=== PATIENT | male | born 1945 | race Caucasian/White ===

== ENCOUNTER 2023-12-01 07:50 | Inpatient (IN) | payer OTHER, MEDICAID ==
[~2023-12-01] VITALS: Ht 172.7 cm; Wt 83.5 kg
[2023-12-01 07:50] VITALS: BP_SYST 123; PULSE 109; RESP 18; TEMP 98.2; O2SAT 100
[2023-12-01] MEDS ORDERED: NACL 0.9% 1,000 ML IV ONE (08:00)
[2023-12-01] MEDS ORDERED: IPRATROPIUM/ALBUTEROL SULFATE 3 ML AMPUL.NEB (DUONEB) INH ONE (08:00)
[2023-12-01] MEDS ORDERED: PIPERACILLIN/TAZO 3.375 GM in NS 50 ML IV ONE ×2 (08:00→15:00)
[2023-12-01] MEDS ORDERED: METHYLPREDNISOLONE SOD SUCC 40 MG/ML VIAL IVP ONE (08:00)
[2023-12-01] MEDS ORDERED: ACET325T53 PO (08:34)
[2023-12-01] MEDS ORDERED: CHLO473M5 PO (08:34)
[2023-12-01] MEDS ORDERED: TRAZ-250 GT (08:34)
[2023-12-01] MEDS ORDERED: ASCO500T20 GT (08:34)
[2023-12-01] MEDS ORDERED: [UNRECOGNIZED DRUG - CODE] GT (08:34)
[2023-12-01] MEDS ORDERED: TAMS-11 GT (08:34)
[2023-12-01] MEDS ORDERED: ACET-2634 GT (08:34)
[2023-12-01] MEDS ORDERED: NOR10 GT (08:34)
[2023-12-01] MEDS ORDERED: HYDR-3917 PO (08:34)
[2023-12-01] MEDS ORDERED: METH85CR31 (08:34)
[2023-12-01] MEDS ORDERED: ALBU2.5V7 INH ×2 (08:34)
[2023-12-01] MEDS ORDERED: ACET325T53 GT (08:34)
[2023-12-01] MEDS ORDERED: CAT1PAT TD (08:34)
[2023-12-01] MEDS ORDERED: LOVI40 SQ (08:34)
[2023-12-01] MEDS ORDERED: MOM GT (08:34)
[2023-12-01] MEDS ORDERED: FER300L PO (08:34)
[2023-12-01] MEDS ORDERED: FOLI0.8T42 GT (08:34)
[2023-12-01] MEDS ORDERED: SIME80TA15 GT (08:34)
[2023-12-01 08:47] LABS: BASOPHILS % (AUTO) 0.5 % (0.0-2.0); EOSINOPHILS # (AUTO) 2.6 K/uL (0.0-0.4); HEMATOCRIT 27.5 % (36-54); HEMOGLOBIN 8.8 g/dL (14.0-18.0); LYMPHOCYTES # (AUTO) 1.1 K/uL (1.0-5.5); LYMPHOCYTES % (AUTO) 13.8 % (20.5-51.5); MEAN CORPUSCULAR HEMOGLOBIN 27 pg (27-31); MEAN CORPUSCULAR HGB CONC 32 % (32-36); MEAN CORPUSCULAR VOLUME 83 fL (79.0-98.0); MONOCYTES # (AUTO) 0.4 K/uL (0.0-1.0); MONOCYTES % (AUTO) 5.3 % (1.7-9.3); NEUTROPHILS # (AUTO) 3.7 K/uL (1.8-7.7); NEUTROPHILS % (AUTO) 47.4 % (40.0-70.0); PLATELET COUNT (AUTO) 263 K/uL (130-430); RED CELL DISTRIBUTION WIDTH 17.5 % (9.0-15.0); WHITE BLOOD COUNT (AUTO) 7.8 K/uL (4.8-10.8)
[2023-12-01 08:58] LABS: INR 1.1 (0.80-1.20)
[2023-12-01 09:04] LABS: ALANINE AMINOTRANSFERASE 30 U/L (12-78); ALBUMIN 2.9 g/dL (3.4-4.8); ANION GAP 10 (5-15); ASPARTATE AMINOTRANSFERASE 22 U/L (10-37); BILIRUBIN,DIRECT 0.1 mg/dL (0.0-0.3); CALCIUM 9.4 mg/dL (8.4-11.0); CARBON DIOXIDE 28 mmol/L (23-29); CHLORIDE 99 mmol/L (98-107); CREATININE 1.57 mg/dL (0.55-1.30); GLUCOSE 101 mg/dL (74-106); POTASSIUM 3.8 mmol/L (3.5-5.1); SODIUM SERUM 137 mmol/L (136-145); TOTAL BILIRUBIN 0.2 mg/dL (0.0-1.0); TOTAL PROTEIN, SERUM 7.2 g/dL (6.4-8.3); UREA NITROGEN, BLOOD 52 mg/dL (8-21)
[2023-12-01] MEDS ORDERED: methylPREDNISolone SOD SUCC/PF 62.5 MG/ML VIAL IVP ONE (12:15)
[2023-12-01] MEDS ORDERED: ACETAMINOPHEN 325 MG TABLET PO PRN (14:30)
[2023-12-01] MEDS ORDERED: ONDANSETRON HCL 4 MG/2 ML VIAL IVP PRN (14:30)
[2023-12-01] MEDS ORDERED: MORPHINE 2 MG/ML INJ. SYRINGE IVP PRN (14:30)
[2023-12-01] MEDS ORDERED: HYDROcodone/ACETAMIN 10-325 MG TAB PO PRN (14:30)
[2023-12-01] MEDS ORDERED: ALBUTEROL SULFATE 0.083% 2.5 MG/3 ML VIAL.NEB INH PRN (14:30)
[2023-12-01] MEDS ORDERED: HYDROcodone/ACETAMIN 5-325 MG TAB (NORCO/ VICODIN) PO PRN (14:30)
[2023-12-01] MEDS ORDERED: DIPHENHYDRAMINE HCL 25 MG CAPSULE GT PRN (15:00)
[2023-12-01] MEDS ORDERED: ENOXAPARIN SODIUM 40 MG/0.4 ML SYRINGE SQ ONE (16:00)
[2023-12-01] MEDS ORDERED: ASCORBIC ACID 500 MG TABLET GT ONE (16:00)
[2023-12-01] MEDS ORDERED: NEPHROVITE, (FOLIC ACID/VITAMIN B COMP W-C 1 TAB) GT ONE (16:00)
[2023-12-01] MEDS ORDERED: TAMSULOSIN HCL 0.4 MG CAP GT ONE (16:00)
[2023-12-01] MEDS ORDERED: amLODIPine BESYLATE 10 MG TABLET GT ONE (16:00)
[2023-12-01] MEDS ORDERED: VANCOMYCIN HCL 1,000 MG in NS 250 ML IV ONE (16:00)
[2023-12-01 16:59] VITALS: BP_SYST 146; PULSE 63; O2SAT 100
[2023-12-01 17:06] VITALS: BP_SYST 143; PULSE 61
[2023-12-01] MEDS ORDERED: VANCOMYCIN HCL 1000 MG/VIAL IV ONE (17:12)
[2023-12-01] MEDS: IPRATROPIUM/ALBUTEROL SULFATE 3 ML AMPUL.NEB (DUONEB) INH SCH (21:52)
[2023-12-01 22:35] VITALS: PULSE 62
[2023-12-01 22:51] VITALS: PULSE 87
[2023-12-01 23:07] VITALS: PULSE 87
[2023-12-01] MEDS: CHLORHEXIDINE GLUC 0.12% 15 ML MOUTHWASH UDC MM SCH (23:18)
[2023-12-01] MEDS: traZODone HCL 50 MG TABLET (DESYREL) GT SCH (23:25)
[2023-12-02] VITALS (14 sets, daily range): BP systolic 129–166; PULSE 55–100; RESP 21; TEMP 97.4; O2SAT 100
[2023-12-02] MEDS: IPRATROPIUM/ALBUTEROL SULFATE 3 ML AMPUL.NEB (DUONEB) INH SCH ×3 (07:15→23:14)
[2023-12-02 08:09] LABS: BASOPHILS % (AUTO) 0.4 % (0.0-2.0); EOSINOPHILS % (AUTO) 0.5 % (0.0-4.0); HEMATOCRIT 26.4 % (36-54); HEMOGLOBIN 8.6 g/dL (14.0-18.0); LYMPHOCYTES # (AUTO) 1.1 K/uL (1.0-5.5); LYMPHOCYTES % (AUTO) 15.2 % (20.5-51.5); MEAN CORPUSCULAR HEMOGLOBIN 27 pg (27-31); MEAN CORPUSCULAR HGB CONC 33 % (32-36); MEAN CORPUSCULAR VOLUME 84 fL (79.0-98.0); MONOCYTES # (AUTO) 0.6 K/uL (0.0-1.0); MONOCYTES % (AUTO) 7.9 % (1.7-9.3); NEUTROPHILS # (AUTO) 5.4 K/uL (1.8-7.7); PLATELET COUNT (AUTO) 278 K/uL (130-430); RED BLOOD CELL COUNT(AUTO) 3.16 MIL/uL (4.2-6.2); RED CELL DISTRIBUTION WIDTH 16.9 % (9.0-15.0); WHITE BLOOD COUNT (AUTO) 7.1 K/uL (4.8-10.8)
[2023-12-02 08:31] LABS: ALANINE AMINOTRANSFERASE 30 U/L (12-78); ALBUMIN 3.1 g/dL (3.4-4.8); ANION GAP 14 (5-15); ASPARTATE AMINOTRANSFERASE 22 U/L (10-37); CALCIUM 8.8 mg/dL (8.4-11.0); CARBON DIOXIDE 23 mmol/L (23-29); CHLORIDE 104 mmol/L (98-107); CHOLESTEROL 206 mg/dL (<200); CREATININE 1.57 mg/dL (0.55-1.30); GLUCOSE 87 mg/dL (74-106); HDL CHOLESTEROL 65 mg/dL (>45); POTASSIUM 4.5 mmol/L (3.5-5.1); SODIUM SERUM 141 mmol/L (136-145); TOTAL BILIRUBIN 0.3 mg/dL (0.0-1.0); TOTAL PROTEIN, SERUM 6.9 g/dL (6.4-8.3); TRIGLYCERIDES 51 mg/dL (30-150); UREA NITROGEN, BLOOD 52 mg/dL (8-21)
[2023-12-02] MEDS: TAMSULOSIN HCL 0.4 MG CAP GT SCH (09:38)
[2023-12-02] MEDS: NEPHROVITE, (FOLIC ACID/VITAMIN B COMP W-C 1 TAB) GT SCH (09:38)
[2023-12-02] MEDS: CHLORHEXIDINE GLUC 0.12% 15 ML MOUTHWASH UDC MM SCH ×2 (09:40→21:00)
[2023-12-02] MEDS: amLODIPine BESYLATE 10 MG TABLET GT SCH (09:40)
[2023-12-02] MEDS: ASCORBIC ACID 500 MG TABLET GT SCH (09:40)
[2023-12-02] MEDS: ENOXAPARIN SODIUM 40 MG/0.4 ML SYRINGE SQ SCH (09:47)
[2023-12-02] MEDS: PIPERACILLIN/TAZO 3.375/DEX-IS 50 ML IV SCH ×2 (12:40→19:15)
[2023-12-02] MEDS: VANCOMYCIN HCL 1,000 MG in NS 250 ML IV SCH (17:06)
[2023-12-02] MEDS: traZODone HCL 50 MG TABLET (DESYREL) GT SCH (22:29)
[2023-12-03] VITALS (17 sets, daily range): BP systolic 124–154; PULSE 74–83; RESP 14–20; TEMP 97.9–98.8; O2SAT 99–100
[2023-12-03] MEDS: PIPERACILLIN/TAZO 3.375/DEX-IS 50 ML IV SCH ×4 (00:49→17:01)
[2023-12-03 01:17] LABS: COVID19 ANTIGEN SOFIA FIA NEGATIVE (NEGATIVE)
[2023-12-03 01:18] LABS: INFLUENZA TYPE A Negative (NEGATIVE); INFLUENZA TYPE B NEGATIVE (NEGATIVE)
[2023-12-03 06:58] LABS: ALANINE AMINOTRANSFERASE 30 U/L (12-78); ALBUMIN 2.9 g/dL (3.4-4.8); ANION GAP 9 (5-15); ASPARTATE AMINOTRANSFERASE 22 U/L (10-37); CALCIUM 9.2 mg/dL (8.4-11.0); CARBON DIOXIDE 29 mmol/L (23-29); CHLORIDE 105 mmol/L (98-107); CREATININE 1.57 mg/dL (0.55-1.30); GLUCOSE 86 mg/dL (74-106); POTASSIUM 4.1 mmol/L (3.5-5.1); SODIUM SERUM 143 mmol/L (136-145); TOTAL BILIRUBIN 0.4 mg/dL (0.0-1.0); TOTAL PROTEIN, SERUM 7.2 g/dL (6.4-8.3); UREA NITROGEN, BLOOD 47 mg/dL (8-21)
[2023-12-03 07:01] LABS: BASOPHILS % (AUTO) 0.4 % (0.0-2.0); EOSINOPHILS # (AUTO) 0.2 K/uL (0.0-0.4); EOSINOPHILS % (AUTO) 1.8 % (0.0-4.0); HEMOGLOBIN 8.6 g/dL (14.0-18.0); LYMPHOCYTES # (AUTO) 0.9 K/uL (1.0-5.5); LYMPHOCYTES % (AUTO) 9.9 % (20.5-51.5); MEAN CORPUSCULAR HEMOGLOBIN 27 pg (27-31); MEAN CORPUSCULAR HGB CONC 33 % (32-36); MEAN CORPUSCULAR VOLUME 83 fL (79.0-98.0); MONOCYTES # (AUTO) 0.4 K/uL (0.0-1.0); MONOCYTES % (AUTO) 3.9 % (1.7-9.3); NEUTROPHILS # (AUTO) 7.7 K/uL (1.8-7.7); PLATELET COUNT (AUTO) 319 K/uL (130-430); RED BLOOD CELL COUNT(AUTO) 3.13 MIL/uL (4.2-6.2); WHITE BLOOD COUNT (AUTO) 9.2 K/uL (4.8-10.8)
[2023-12-03] MEDS: IPRATROPIUM/ALBUTEROL SULFATE 3 ML AMPUL.NEB (DUONEB) INH SCH ×3 (07:26→23:15)
[2023-12-03] MEDS: CHLORHEXIDINE GLUC 0.12% 15 ML MOUTHWASH UDC MM SCH ×2 (09:35→22:06)
[2023-12-03] MEDS: TAMSULOSIN HCL 0.4 MG CAP GT SCH (09:35)
[2023-12-03] MEDS: ASCORBIC ACID 500 MG TABLET GT SCH (09:35)
[2023-12-03] MEDS: NEPHROVITE, (FOLIC ACID/VITAMIN B COMP W-C 1 TAB) GT SCH (09:35)
[2023-12-03] MEDS: ENOXAPARIN SODIUM 40 MG/0.4 ML SYRINGE SQ SCH (09:36)
[2023-12-03] MEDS: amLODIPine BESYLATE 10 MG TABLET GT SCH (09:36)
[2023-12-03] MEDS: VANCOMYCIN HCL 1,000 MG in NS 250 ML IV SCH (17:01)
[2023-12-03] MEDS: traZODone HCL 50 MG TABLET (DESYREL) GT SCH (22:06)
[2023-12-04] VITALS (18 sets, daily range): BP systolic 115–154; PULSE 65–84; RESP 14–22; TEMP 97.3–98.5; O2SAT 97–100
[2023-12-04] MEDS: PIPERACILLIN/TAZO 3.375/DEX-IS 50 ML IV SCH ×5 (00:52→23:00)
[2023-12-04 06:17] LABS: BASOPHILS % (AUTO) 0.6 % (0.0-2.0); EOSINOPHILS # (AUTO) 0.2 K/uL (0.0-0.4); EOSINOPHILS % (AUTO) 2.8 % (0.0-4.0); HEMATOCRIT 25.7 % (36-54); HEMOGLOBIN 8.4 g/dL (14.0-18.0); LYMPHOCYTES % (AUTO) 13.3 % (20.5-51.5); MEAN CORPUSCULAR HEMOGLOBIN 27 pg (27-31); MEAN CORPUSCULAR HGB CONC 33 % (32-36); MEAN CORPUSCULAR VOLUME 83 fL (79.0-98.0); MONOCYTES # (AUTO) 0.6 K/uL (0.0-1.0); MONOCYTES % (AUTO) 8.1 % (1.7-9.3); NEUTROPHILS # (AUTO) 5.9 K/uL (1.8-7.7); NEUTROPHILS % (AUTO) 75.2 % (40.0-70.0); PLATELET COUNT (AUTO) 302 K/uL (130-430); RED BLOOD CELL COUNT(AUTO) 3.09 MIL/uL (4.2-6.2); RED CELL DISTRIBUTION WIDTH 16.7 % (9.0-15.0); WHITE BLOOD COUNT (AUTO) 7.8 K/uL (4.8-10.8)
[2023-12-04 06:40] LABS: ANION GAP 9 (5-15); CARBON DIOXIDE 28 mmol/L (23-29); CHLORIDE 108 mmol/L (98-107); CREATININE 1.66 mg/dL (0.55-1.30); GLUCOSE 95 mg/dL (74-106); POTASSIUM 4.1 mmol/L (3.5-5.1); SODIUM SERUM 145 mmol/L (136-145); UREA NITROGEN, BLOOD 41 mg/dL (8-21)
[2023-12-04] MEDS: IPRATROPIUM/ALBUTEROL SULFATE 3 ML AMPUL.NEB (DUONEB) INH SCH ×2 (08:31→21:18)
[2023-12-04] MEDS: TAMSULOSIN HCL 0.4 MG CAP GT SCH (09:41)
[2023-12-04] MEDS: CHLORHEXIDINE GLUC 0.12% 15 ML MOUTHWASH UDC MM SCH ×2 (09:41→21:04)
[2023-12-04] MEDS: ASCORBIC ACID 500 MG TABLET GT SCH (09:41)
[2023-12-04] MEDS: NEPHROVITE, (FOLIC ACID/VITAMIN B COMP W-C 1 TAB) GT SCH (09:41)
[2023-12-04] MEDS: ENOXAPARIN SODIUM 40 MG/0.4 ML SYRINGE SQ SCH (09:42)
[2023-12-04] MEDS: amLODIPine BESYLATE 10 MG TABLET GT SCH (09:42)
[2023-12-04] MEDS: VANCOMYCIN HCL 1,000 MG in NS 250 ML IV SCH (17:21)
[2023-12-04] MEDS: traZODone HCL 50 MG TABLET (DESYREL) GT SCH (21:04)
[2023-12-05] VITALS (22 sets, daily range): BP systolic 136–146; PULSE 51–77; RESP 14–16; TEMP 97.8–98.3; O2SAT 98–100
[2023-12-05 06:40] LABS: ALANINE AMINOTRANSFERASE 30 U/L (12-78); ALBUMIN 2.7 g/dL (3.4-4.8); ANION GAP 9 (5-15); ASPARTATE AMINOTRANSFERASE 20 U/L (10-37); CARBON DIOXIDE 29 mmol/L (23-29); CHLORIDE 111 mmol/L (98-107); CREATININE 1.64 mg/dL (0.55-1.30); GLUCOSE 101 mg/dL (74-106); POTASSIUM 4.3 mmol/L (3.5-5.1); SODIUM SERUM 149 mmol/L (136-145); TOTAL BILIRUBIN 0.4 mg/dL (0.0-1.0); TOTAL PROTEIN, SERUM 6.9 g/dL (6.4-8.3); UREA NITROGEN, BLOOD 41 mg/dL (8-21)
[2023-12-05] MEDS: PIPERACILLIN/TAZO 3.375/DEX-IS 50 ML IV SCH ×3 (06:50→19:34)
[2023-12-05] MEDS: IPRATROPIUM/ALBUTEROL SULFATE 3 ML AMPUL.NEB (DUONEB) INH SCH ×2 (07:16→15:31)
[2023-12-05 07:19] LABS: BASOPHILS # (AUTO) 0.1 K/uL (0.0-0.2); BASOPHILS % (AUTO) 0.7 % (0.0-2.0); EOSINOPHILS # (AUTO) 0.3 K/uL (0.0-0.4); EOSINOPHILS % (AUTO) 4.2 % (0.0-4.0); HEMATOCRIT 25.1 % (36-54); HEMOGLOBIN 8.2 g/dL (14.0-18.0); LYMPHOCYTES # (AUTO) 0.9 K/uL (1.0-5.5); MEAN CORPUSCULAR HEMOGLOBIN 28 pg (27-31); MEAN CORPUSCULAR HGB CONC 33 % (32-36); MEAN CORPUSCULAR VOLUME 84 fL (79.0-98.0); MONOCYTES # (AUTO) 0.6 K/uL (0.0-1.0); MONOCYTES % (AUTO) 7.9 % (1.7-9.3); NEUTROPHILS # (AUTO) 5.6 K/uL (1.8-7.7); NEUTROPHILS % (AUTO) 75.2 % (40.0-70.0); PLATELET COUNT (AUTO) 294 K/uL (130-430); RED BLOOD CELL COUNT(AUTO) 2.99 MIL/uL (4.2-6.2); RED CELL DISTRIBUTION WIDTH 17.3 % (9.0-15.0); WHITE BLOOD COUNT (AUTO) 7.4 K/uL (4.8-10.8)
[2023-12-05] MEDS ORDERED: D5W 250 ML IV ONE (09:15)
[2023-12-05] MEDS: TAMSULOSIN HCL 0.4 MG CAP GT SCH (10:34)
[2023-12-05] MEDS: NEPHROVITE, (FOLIC ACID/VITAMIN B COMP W-C 1 TAB) GT SCH (10:34)
[2023-12-05] MEDS: ASCORBIC ACID 500 MG TABLET GT SCH (10:34)
[2023-12-05] MEDS: amLODIPine BESYLATE 10 MG TABLET GT SCH (10:35)
[2023-12-05] MEDS: ENOXAPARIN SODIUM 40 MG/0.4 ML SYRINGE SQ SCH (10:35)
[2023-12-05] MEDS: CHLORHEXIDINE GLUC 0.12% 15 ML MOUTHWASH UDC MM SCH (10:42)
[2023-12-05] MEDS: VANCOMYCIN HCL 1,000 MG in NS 250 ML IV SCH (18:32)
== END 2023-12-05 20:40 | DRG 207 ==
LOC: SED 07:50 → SIC 15:32 → SMU 12-02 15:09 → STU 12-02 15:15
PROVIDERS: ADMIT Family Medicine; ATTEND Family Medicine
PROC: 5A1955Z Respiratory Ventilation, Greater than 96 Consecutive Hours (ICD-10-PCS; principal; 2023-12-02)
DX: J96.21 Acute and chronic respiratory failure with hypoxia (principal); J15.9 Unspecified bacterial pneumonia; E44.1 Mild protein-calorie malnutrition; J44.0 Chronic obstructive pulmonary disease with (acute) lower respiratory infection; N17.9 Acute kidney failure, unspecified; Z99.11 Dependence on respirator [ventilator] status; I69.354 Hemiplegia and hemiparesis following cerebral infarction affecting left non-dominant side; R65.10 Systemic inflammatory response syndrome (SIRS) of non-infectious origin without acute organ dysfunction; I44.7 Left bundle-branch block, unspecified; I48.0 Paroxysmal atrial fibrillation; R13.10 Dysphagia, unspecified; E66.9 Obesity, unspecified; Z20.822 Contact with and (suspected) exposure to COVID-19; I12.9 Hypertensive chronic kidney disease with stage 1 through stage 4 chronic kidney disease, or unspecified chronic kidney disease; N18.9 Chronic kidney disease, unspecified; Z87.891 Personal history of nicotine dependence; Z74.01 Bed confinement status; Z93.3 Colostomy status; Z93.0 Tracheostomy status; Z93.1 Gastrostomy status; Z68.28 Body mass index [BMI] 28.0-28.9, adult
CPT/HCPCS: 36415; 71045; 80048; 80053; 80061; 80076; 83037; 83605; 83880; 84484; 85025; 85610; 85651; 85730; 87040; 87070; 87081; 87205; 93005; 93306; 94002; 94003; 94640; 94760; 99291; G0378; J1650; J2270; J2543; J2930; J3370; J7050